=== PATIENT | male | born 1970 | race Caucasian/White ===

== ENCOUNTER 2019-08-22 12:53 | Outpatient (CLI) | payer OTHER ==
[2019-08-22 15:46] VITALS: BP 127/80
--- NOTE | 2019-08-22 15:46 | SLEEP CARE CONSULTATION ---
Information from patient questionnaire entered by Pattie Saez. I have reviewed and concur with the information entered by Pattie Saez. This document represents the service I personally performed and the decisions made by me, Joshua Reddy MD, [facility]. History of Present Illness Reason for Visit: New patient Chief Complaint: reports: Other (sleep apnea) Duration of Symptoms: 10+ years Usual bedtime: [id number] Time it takes to fall asleep: 20-30 minutes Snores at night: Yes Observed to quit breathing while asleep: Yes Sleeps alone due to snoring: No Number of times waking at night: 5-7 Reasons for waking at night: reports: Snoring, Pain, Bathroom Toss, Turn, or Twitch while sleeping: Yes Recalls having dreams: Yes Usually gets out of bed at: [id number] Feels refreshed in the morning: No Morning headache: No Sleepy or fatigued during the day: Yes Ever fallen asleep while driving: Yes Takes day naps: No Dreams during day naps: No Prior sleep studies: Yes Year and Where: 2012 [place], [place] Additional HPI information: I had the pleasure of seeing Mr. Raphael today regarding obstructive sleep apnea-hypopnea. As you know, he is a 49 year old gentleman who was diagnosed with the sleep-disordered breathing on 2012 at [facility], in [place], [place]. He recalls the severity to be severe. He was prescribed a CPAP device. The air pressure had to be adjusted many times but still he could not fall asleep with it on. He also suffered aerophagia. He tried nasal pillows and full face masks. He returned the first machine to the durable medical supplier. He still has [facility]. Subjective Initial [place] Sleepiness Scale score: 16 Past Medical History Past Medical History: reports: Arthritis, Fibromyalgia, GERD, Other (Hemocromotosis, IBS) Social History The patient's occupation is a RETIRED. Patient is and lives in [place]. Allergies and Home Medications Drug allergies reviewed: Yes Home medication list reviewed: Yes Allergy and home medication list: Meds: Omeprozole, hydroxyzine, trazodone, gabapentin Review of Systems Cardiovascular: denies: high blood pressure, palpitations, chest pain, irregular heart rate or pulse, leg or foot swelling, have to sleep sitting up, other Respiratory: denies: shortness of breath, wheeze, sputum production, chronic cough, other Gastrointestinal: denies: heartburn, difficulty swallowing, nausea, vomitting, diarrhea, abdominal pain, other Urinary: denies: incontinence, frequency, urgency, impotence, other Neurological: denies: headaches, seizure, head trauma, disorientation, speech dysfunction, gait or balance problems, fainting or unconsciousness, other Psychiatric: denies: Attention Deficit Hyperactivity, anxiety, depression, mood disorder, claustrophobia, other Ear/Nose/Throat: denies: nasal congestion, sinus problems, nose bleeds, dry mouth/throat, hoarseness, injury to nose, tonsillectomy, wisdom teeth removed, other Endocrine: denies: thyroid disease, history of goiter, sluggishness, too hot or cold, excessive thirst, increased appetite, increased urination, unexplained weakness, other Musculoskeletal: denies: joint pain, neck pain, back pain, joint swelling, muscle pain or cramping, mobility problems, other Immunologic: denies: sneezing, rash, itching, allergies to food or environment, other Physical Exam Vital signs obtained and entered by: Dr. Reddy Blood Pressure: 127/80 Cuff size: regular Heart Rate: 64 O2 Saturation: 98 Height: 5 ft 10 in Weight: 237 lb Body Mass Index: 34.0 BMI Classification: Obesity Class 1 Neck circumference: 17 Mood/affect: normal HEENT: No craniofacial malformation Nostrils: patent to airflow Turbinates: normal Septum: midline Mouth and throat: narrow oropharynx Soft palate: long Hard palate: normal Uvula: normal Uvula visualization: 25% Mallampati Class III Tongue: normal in size Tonsils: small Chin and jaw: normal size and position Neck: normal w/o lymphadenopathy or thyromegaly Heart: regular rate and rhythm Lungs: clear bilaterally Abdomen: soft, non-tender Extremities: no edema or clubbing Neurologic: intact, no focal deficits Impression and Plan IMPRESSION: 1. Obstructive Sleep Apnea-Hypopnea Syndrome, as previously diagnosed but unknown severity. The patient was unable to tolerate CPAP. He continues to be symptomatic for loud snoring, frequent awakenings during the night, unrefreshed sleep, and daytime hypersomnolence. Narrow oropharynx and obesity are common predisposing factors for obstructive sleep apnea-hypopnea syndrome. Pathophysiology of sleep-disordered breathing was discussed. I recommend proceeding to polysomnography to confirm the diagnosis and to assess severity. If he has significant sleep disordered breathing, a manual CPAP titration study will also be performed to find the optimal treatment pressure. I informed the patient of what the sleep studies involve and after some discussion, he agreed to proceed. Plan: 1. Schedule polysomnography + manual CPAP titration study and return in 1 to weeks after the study to discuss result and initiate therapy. 2. Avoid long distance driving or when feeling sleepy. 3. Avoid alcohol, sedative and muscle relaxant around bedtime. 4. Attempt to lose weight. I spent 100% of this 20 minute visit face to face with the patient with greater than 50% of this was spent time counseling the patient and coordination of care.
== END 2019-08-22 12:54 | disposition home or self-care (01) ==
LOC: SC 12:53
PROVIDERS: ATTEND Internal Medicine Pulmonary Disease
DX: G47.33 Obstructive sleep apnea (adult) (pediatric) (principal); E66.9 Obesity, unspecified; Z68.34 Body mass index [BMI] 34.0-34.9, adult
CPT/HCPCS: 99203; 99212

== ENCOUNTER 2021-07-20 21:30 | Emergency (ER) | payer OTHER ==
[2021-07-20] MEDS ORDERED: methocarbamoL 500 MG TABLET PO STA (22:16)
[2021-07-20] MEDS ORDERED: KETOROLAC 30 MG/ML VIAL IM STA (22:16)
--- NOTE | 2021-07-20 22:34 | ED Physician Documentation ---
History of Present Illness - Stated complaint Stated Complaint: HIGH BP, LIGHT HEADED, NOT FEELING NORMAL - Chief complaint Chief Complaint: Cardiac - History obtained from History obtained from: Patient - Additonal information Additional information: 51-year-old man with history of high blood pressure on Micardis, also with PTSD, gerd, non-smoker with no prior cardiac history presents with elevated blood pressure and anxiety. 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 He did not sleep well at night and then on Wednesday with coughing, had several whiskey beverages, not in the evening time, then had takeout sinhala food and experienced acid reflux, had trouble again falling asleep late into the night due to jolts in the R neck going down his arm which he attributes to a known pinched nerve. Patient again felt anxious today and felt he may have had another panic attack. He took his blood pressure which was elevated and had dizzy sensation so came to the ED. Review of Systems Ten Systems: 10 systems reviewed and negative Constitutional: denies: Fever, Chills Cardiac: denies: Chest pain / pressure Respiratory: denies: Dyspnea GI: denies: Nausea Neurologic: reports: Other (dizziness). denies: Headache Psychiatric: reports: Anxiety PD PAST MEDICAL HISTORY - Past Medical History Past Medical History: Yes Cardiovascular: Hypertension Respiratory: None Neuro: Other Endocrine/Autoimmune: None GI: GERD, Other : None HEENT: Other Musculoskeletal: Other Derm: None Other Past Medical History: IBS - Past Surgical History Past Surgical History: Yes Ortho: Other - Present Medications Home Medications: Ambulatory Orders Medication Instructions Recorded Confirmed Esomeprazole Magnesium [Nexium] 40 mg PO DAILY 08/22/15 07/20/21 Telmisartan 40 mg PO DAILY 07/20/21 07/20/21 - Allergies Allergies/Adverse Reactions: Allergies Allergy/AdvReac Type Severity Reaction Status Date / Time ibuprofen [From Motrin] Allergy Rash Verified 07/20/21 21:44 - Social History Does the pt smoke?: No Smoking Status: Never smoker Does the pt drink ETOH?: Yes Does the pt have substance abuse?: Yes Substance Use and Type: Marijuana, CBD oil / Products - Immunizations Immunizations are current?: Yes PD ED PE NORMAL - Vitals Vital signs reviewed: Yes - General General: Alert and oriented X 3, No acute distress, Well developed/nourished - HEENT HEENT: Atraumatic, PERRL, EOMI - Neck Neck: Supple, no meningeal sign - Cardiac Cardiac: RRR - Respiratory Respiratory: No respiratory distress, Clear bilaterally - Abdomen Abdomen: Non tender, Non distended - Back Back: No CVA TTP - Derm Derm: Normal color - Extremities Extremities: No deformity - Neuro Neuro: Alert and oriented X 3, electronic gluer 2-12 intact, No motor deficit, No sensory deficit, Normal speech - Psych Psych: Other (anxious mood, normal affect) Results - Vitals Vitals: Vital Signs - 24 hr 07/20/21 07/20/21 07/20/21 21:41 21:59 23:15 Temperature 36.6 C Heart Rate 93 90 77 Respiratory 18 18 18 Rate Blood Pressure 179/89 H 171/103 H 130/77 O2 Saturation 99 100 96 Oxygen O2 Source Room air - EKG (time done) 2238 Rate: Rate (enter#) (80) Rhythm: NSR [place]: Normal Intervals: Normal OR QRS: Normal Ischemia: Normal ST segments PD MEDICAL DECISION MAKING - ED course ED course: 51-year-old man presented with multiple factors contributing to high blood pre ssure and anxiety. Patient felt much better after speaking with me and states that his anxiety is improved. Advised him to avoid alcohol, take out food high in salt, and to follow-up with his primary doctor this week. Return precautions given. Departure - Departure Disposition: 01 Home, Self Care Clinical Impression: Hypertension, Anxiety, Neck pain Condition: Good Instructions: Hypertension Control, ED Stress React Comments: You were seen in the emergency department for multiple factors that are likely raising your blood pressure. Make sure that you follow-up with your primary doctor this week and return to the emergency department if you have any new or worsening symptoms or other concerns Discharge Date/Time: 07/20/21 23:15
[2021-07-20 23:16] VITALS: BP 130/77
== END 2021-07-20 23:15 | disposition home or self-care (01) ==
LOC: ED 21:30
DX: F41.9 Anxiety disorder, unspecified (principal); I10 Essential (primary) hypertension; M54.2 Cervicalgia
CPT/HCPCS: 93005; 96372; 99284; A9270